=== PATIENT | female | born 1955 | race Caucasian/White ===

== ENCOUNTER → 2017-09-21 | Outpatient (CLI) | payer BC | END | disposition home or self-care (01) | LOC: LAB SHORT 11:22 → LAB 11:22 | DX: N89.8 Other specified noninflammatory disorders of vagina (principal) | CPT/HCPCS: 87070; 87077; 87186; 87205 ==

== ENCOUNTER → 2020-07-01 | Outpatient (CLI) | payer OTHER ==
[~2020-07-01] MED LIST: ALEVE PM CAPLE1 EACH PO; ASCO500; CALTRATE+D3 PL1 EACH; CENTRUM SILVER1 EAC3; CETI5 PO; GLUC500; IBUP400; LEVSOD125 PO; MAGOXI400; TOCO1000
== END | disposition home or self-care (01) ==
LOC: LAB 12:33 → LAB SHORT 12:33
DX: D22.5 Melanocytic nevi of trunk (principal)
CPT/HCPCS: 88305

== ENCOUNTER 2023-03-22 11:07 | Day surgery (SDC) | payer OTHER ==
[~2023-03-22] VITALS: Ht 162.6 cm; Wt 83.6 kg
[2023-03-22] MEDS ORDERED: MOBIC15 MG PO (11:18)
[2023-03-22 13:13] VITALS: BP 110/64
== END 2023-03-22 13:13 | disposition home or self-care (01) ==
LOC: ORSCSDS 11:07
PROVIDERS: Internal Medicine Gastroenterology
PROC: 0DBK8ZX Excision of Ascending Colon, Via Natural or Artificial Opening Endoscopic, Diagnostic (ICD-10-PCS; principal; 2023-03-22 13:30)
DX: Z12.11 Encounter for screening for malignant neoplasm of colon (principal); Z86.010 Personal history of colon polyps; Z80.0 Family history of malignant neoplasm of digestive organs; K63.5 Polyp of colon; K57.30 Diverticulosis of large intestine without perforation or abscess without bleeding; Z68.33 Body mass index [BMI] 33.0-33.9, adult; Z79.899 Other long term (current) drug therapy
CPT/HCPCS: 88305; J2704; J7120

== ENCOUNTER 2023-08-02 06:07 | Day surgery (SDC) | payer OTHER ==
[~2023-08-02] VITALS: Ht 162.6 cm; Wt 87.7 kg
[~2023-08-02 06:07] MED LIST changes: +Lactated Ringer's 1,000 ML IV ONE; +MOBIC15 MG PO
[2023-08-02] MEDS ORDERED: EPINEPhrine HCl 1 MG/ML 1ML Amp ONE (06:37)
[2023-08-02] MEDS ORDERED: Ropivacaine 0.5% HCl/Pf 5 MG/ML 20ML VIAL ONE (06:37)
[2023-08-02] MEDS ORDERED: CefTRIAXone Sodium 2,000 MG in NS 100 ML IV SCH (06:40)
[2023-08-02] MEDS ORDERED: EUTHYROX100 MC1 PO (06:45)
[2023-08-02] MEDS ORDERED: ZINC PO (06:47)
[2023-08-02] MEDS ORDERED: Acetaminophen 500 MG Tab ONE (06:55)
[2023-08-02] MEDS ORDERED: OMEP20ER PO (06:58)
[2023-08-02] MEDS ORDERED: FentaNYL Citrate 50 MCG/ML 2 ML Injection ONE (07:00)
[2023-08-02] MEDS ORDERED: Midazolam HCl 1MG / ML 2ML Vial ONE (07:00)
[2023-08-02] MEDS ORDERED: propofoL 20 ML IV ONE (07:00)
[2023-08-02] MEDS ORDERED: Rocuronium Bromide 10 MG/ML 5ML Injection IV ONE ×3 (07:02→09:14)
[2023-08-02] MEDS ORDERED: OxyCODONE HCL 10 MG TABCR ONE (07:03)
[2023-08-02] MEDS ORDERED: Bupivacaine 0.5% HCl 5 MG/ML 30MLVIAL ONE (07:04)
[2023-08-02] MEDS ORDERED: Lactated Ringer's 1,000 ML IV ONE (07:07)
--- NOTE | 2023-08-02 07:53 | NUR ---
[facility]02[facility]23 [facility] PER DR DAY SMALLS TO PROCEED WITH ROCPEHIN DESPITE REACTION OF RASH FROM AMOXICILLIN. PER ANESTHESIA ORDER FROM 2018 SHE RECEIVED ANCEF WITHOUT ANY ISSUE IN 2018. 0730: NOTIFIED DR BERNSTEIN OF SMALL CUT TO L THUMB, PER DR DAY SMALLS TO PROCEED DESPITE CUT TO OPERATIVE LIMB.
[2023-08-02] MEDS ORDERED: Ondansetron HCl 2 MG / ML 2ML Vial ONE ×2 (08:03→10:50)
[2023-08-02] MEDS ORDERED: Dexamethasone Sod Phos 10 MG/ML 1ML VIAL ONE ×2 (08:03→10:50)
--- NOTE | 2023-08-02 08:28 | NUR ---
08/02/23 0828 Karen Carbajal ROPIVACAINE 0.5% 20MLS MIXED AND VERIFIED W/ EPI 0.1MG (1MG/ML) TO MAKE ROPIVACAINE 0.5% W/ EPI 1:200,000 FOR INJECTION AT OPSITE. 10MLS ON FIELD FOR DR. BERNSTEIN TO INJECT.
[2023-08-02] MEDS ORDERED: Sugammadex Sodium 200 MG/2ML SDV (100 MG/ML) ONE (09:56)
[2023-08-02] MEDS ORDERED: Ketorolac Tromethamine 30mg Vial ONE (10:50)
[2023-08-02] MEDS ORDERED: Labetalol HCL 5 MG/ML 4ML Injection (Single Dose) ONE (10:56)
[2023-08-02 13:10] VITALS: BP 91/80
== END 2023-08-02 12:55 | disposition home or self-care (01) ==
LOC: ORSCSDS 06:07
PROVIDERS: Orthopaedic Surgery
PROC: 0RRK00Z Replacement of Left Shoulder Joint with Reverse Ball and Socket Synthetic Substitute, Open Approach (ICD-10-PCS; principal; 2023-08-02 07:30)
DX: M19.012 Primary osteoarthritis, left shoulder (principal); E03.9 Hypothyroidism, unspecified; M79.7 Fibromyalgia; Z79.899 Other long term (current) drug therapy; Z68.34 Body mass index [BMI] 34.0-34.9, adult; Z96.659 Presence of unspecified artificial knee joint
CPT/HCPCS: 73030; A9270; C1713; C1776; J0171; J0696; J1100; J1885; J2250; J2405; J2704; J2795; J3010; J7120

== ENCOUNTER 2024-04-03 06:12 | Day surgery (SDC) | payer OTHER ==
[~2024-04-03] VITALS: Ht 162.6 cm; Wt 87.8 kg
[~2024-04-03 06:12] MED LIST changes: +EUTHYROX100 MC1 PO; -Lactated Ringer's 1,000 ML IV ONE; +OMEP20ER PO; +ZINC PO
[2024-04-03] MEDS ORDERED: Vancomycin HCL 1,000 MG in NS 250 ML IV SCH (06:45)
[2024-04-03] MEDS ORDERED: CefTRIAXone Sodium 2,000 MG in NS 100 ML IV SCH (06:45)
[2024-04-03] MEDS ORDERED: Acetaminophen650 M1 (06:48)
[2024-04-03] MEDS ORDERED: CALTRATE 600 P1 EACH (06:49)
[2024-04-03] MEDS ORDERED: GLUCOSAMINE-CH1 EA50 (06:49)
[2024-04-03] MEDS ORDERED: FentaNYL Citrate 50 MCG/ML 2 ML Injection ONE (07:02)
[2024-04-03] MEDS ORDERED: propofoL 20 ML IV ONE (07:04)
[2024-04-03] MEDS ORDERED: NS 1,000 ML IV ONE ×2 (07:04→09:04)
[2024-04-03] MEDS ORDERED: Rocuronium Bromide 10 MG/ML 5ML Injection IV ONE ×3 (07:05→09:48)
[2024-04-03] MEDS ORDERED: Bupivacaine 0.5% HCl 5 MG/ML 30MLVIAL ONE (07:06)
[2024-04-03] MEDS ORDERED: Acetaminophen 500 MG Tab ONE (07:11)
[2024-04-03] MEDS ORDERED: OxyCODONE HCL 10 MG TABCR ONE (07:12)
--- NOTE | 2024-04-03 07:30 | NUR ---
04/03/24 0730 Kasandra Merritt 0.15 ML OF EPI (1MG/ML) ADDED TO 0.5% BUPIVACAINE (150MG/30ML) TO MAKE BUPIVACAINE 0.5% WITH EPI 1:200,000. 2X SAFETY STRAPS 1X GEL PAD UNDER EACH SAFETY STRAP 1X GEL PAD UNDER COCCYX 1X GEL PAD UNDER LEFT ARM; BETWEEN ARM AND ARM REST
[2024-04-03] MEDS ORDERED: Bupivacaine 0.5% W/EPI 1:200000 SDV 30ML INJ ONE ×2 (07:32)
[2024-04-03] MEDS ORDERED: Tranexamic Acid 100 ML IV ONE ×2 (07:36→10:47)
--- NOTE | 2024-04-03 07:52 | NUR ---
04/03/24 0752 KATHRYN HATFIELD ANESTHESIA PREOP NERVE BLOCK TIMEOUT AT BEDSIDE @[address] GUTIERREZ @0623
[2024-04-03] MEDS ORDERED: ePHEDrine Sulfate 50 MG/ML 1ML Injection ONE (07:59)
[2024-04-03] MEDS ORDERED: Lactated Ringer's 0 ML IV ONE (09:03)
[2024-04-03] MEDS ORDERED: Sugammadex Sodium 200 MG/2ML SDV (100 MG/ML) ONE (09:48)
[2024-04-03] MEDS ORDERED: Ondansetron HCl 2 MG / ML 2ML Vial ONE (09:48)
[2024-04-03 10:26] VITALS: BP 123/65
[2024-04-03] MEDS ORDERED: Lactated Ringer's 1,000 ML IV ONE (12:20)
--- NOTE | 2024-04-03 13:00 | NUR ---
04/03/24 Forrest Vargas PT INITIALLY MAINTAINING O2 93-97% IN SDU WITH BREIF DROPS LOW 88% . SHE WAS ABLE TO QUICKLY RETURN O2 >93% WITH DEEP BREATHS. SHE DENIED SOB, CP, AND DIZZINESS. PULSE OXYMETERY WAS SWITCHED FROM FINGER TO TOE AT 1200. PT'S O2 DID NOT DROP BELOW 94% FOLLOWING THIS POINT. SHE DENIED PAIN AND NAUSEA AND EXPRESSED READINESS TO RETURN HOME.
== END 2024-04-03 12:40 | disposition home or self-care (01) ==
LOC: ORSCSDS 06:12
PROVIDERS: Orthopaedic Surgery
PROC: 0RRJ00Z Replacement of Right Shoulder Joint with Reverse Ball and Socket Synthetic Substitute, Open Approach (ICD-10-PCS; principal; 2024-04-03 07:30)
DX: M19.011 Primary osteoarthritis, right shoulder (principal); K21.9 Gastro-esophageal reflux disease without esophagitis; E03.9 Hypothyroidism, unspecified; M79.7 Fibromyalgia; Z79.899 Other long term (current) drug therapy
CPT/HCPCS: 73030; A9270; C1713; C1776; J0696; J2405; J2704; J3010; J3370; J7030; J7050; J7120